=== PATIENT | male | born 1965 | race Two or more races ===

== ENCOUNTER 2016-05-01 14:20 | Emergency (ER) | payer SELFPAY ==
[~2016-05-01] VITALS: Ht 177.8 cm; Wt 64.8 kg
[2016-05-01 21:41] VITALS: BP 104/70
== END 2016-05-01 21:45 | disposition home or self-care (01) ==
LOC: EME 14:20
DX: F20.9 Schizophrenia, unspecified (principal); Z76.0 Encounter for issue of repeat prescription
CPT/HCPCS: 90839; 99281; 99284

== ENCOUNTER 2016-07-04 15:39 | Emergency (ER) | payer OTHER ==
[~2016-07-04] VITALS: Ht 177.8 cm; Wt 64.1 kg
[2016-07-04 16:44] LABS: HEMATOCRIT 35.1 % (38.0-50.0); MCH 33.6 PG (29.0-34.0); MCHC 33.3 G/DL (30.0-36.0); MCV 100.9 FL (86-99); MEAN PLAT.VOLUME 11.1 uM^3 (9.0-12.4); PLATELET COUNT 222 K/uL (156-360); RBC DIS.WIDTH-CV 13.7 % (11.8-14.6); RBC DIS.WIDTH-SD 50.9 % (39-53); RED BLOOD COUNT 3.48 M/uL (4.00-5.50)
[2016-07-04 16:57] LABS: CHLORIDE 109 mEq/L (99-109); POTASSIUM 3.7 mEq/L (3.7-5.4); SODIUM 140 mEq/L (136-147)
[2016-07-04 16:59] LABS: GLUCOSE 97 mg/dL (70-99)
[2016-07-04 17:00] LABS: ANION GAP 9 MEQ/L (2-14)
[2016-07-04 17:03] LABS: GFR ESTIMATE (CALCULATED) > 59 mL/min/; UREA NITROGEN (BUN) 10 mg/dL (9-23)
[2016-07-04] MEDS ORDERED: CLINDAMYCIN HC300 MG PO (19:03)
[2016-07-04] MEDS ORDERED: TERBINAFINE HC250 MG PO (19:08)
[2016-07-04 19:25] VITALS: BP 112/64
== END 2016-07-04 19:33 | disposition home or self-care (01) ==
LOC: EME → EDBD 15:39 → EME 15:39
PROVIDERS: Emergency Medicine
DX: L03.116 Cellulitis of left lower limb (principal); B35.1 Tinea unguium; E78.5 Hyperlipidemia, unspecified; F17.200 Nicotine dependence, unspecified, uncomplicated
CPT/HCPCS: 73610; 73630; 80048; 83605; 85027; 99281; 99285

== ENCOUNTER 2016-10-06 12:21 | Emergency (ER) | payer OTHER ==
[~2016-10-06] VITALS: Ht 177.8 cm; Wt 62.0 kg
[~2016-10-06 12:21] MED LIST: CLINDAMYCIN HC300 MG PO; TERBINAFINE HC250 MG PO
[2016-10-06 13:30] LABS: EOSINOPHIL (%) 0.2 % (0-5); IMMATURE GRANULOCYTE (%) 0.5 % (0.0-0.7); IMMATURE GRANULOCYTE COUNT 0.1 K/uL; INSTRUMENT ABS NEUTROPHIL CT 8.7 K/uL; LYMPHOCYTE COUNT 1.3 K/uL (1.0-2.8); MCH 33.4 PG (29.0-34.0); MCHC 35.1 G/DL (30.0-36.0); MCV 95.1 FL (86-99); MEAN PLAT.VOLUME 10.4 uM^3 (9.0-12.4); MONOCYTE (%) 8.8 % (3-12); NEUTROPHIL (%) 78.3 % (45-76); NEUTROPHIL COUNT 8.7 K/uL (1.8-6.4); PLATELET COUNT 270 K/uL (156-360); RBC DIS.WIDTH-CV 12.2 % (11.8-14.6); RBC DIS.WIDTH-SD 42.3 % (39-53); RED BLOOD COUNT 3.89 M/uL (4.00-5.50); WHITE BLOOD COUNT 11.1 K/uL (4.1-10.2)
[2016-10-06 13:47] LABS: CHLORIDE 103 mEq/L (99-109); POTASSIUM 3.9 mEq/L (3.7-5.4); SODIUM 135 mEq/L (136-147)
[2016-10-06 13:49] LABS: GLUCOSE 91 mg/dL (70-99)
[2016-10-06 13:50] LABS: ANION GAP 10 MEQ/L (2-14)
[2016-10-06 13:51] LABS: TOTAL BILIRUBIN 0.6 mg/dL (0.0-1.0)
[2016-10-06 13:53] LABS: ALKALINE PHOSPHATASE 63 IU/L (3-129); GFR ESTIMATE (CALCULATED) > 59 mL/min/
[2016-10-06 13:54] LABS: UREA NITROGEN (BUN) 8 mg/dL (9-23)
[2016-10-06 13:56] LABS: CREATINE KINASE 710 IU/L (1-294); TOTAL CK 710 IU/L (1-294)
[2016-10-06 13:57] LABS: TROP-I INTERPRETATION NEGATIVE; TROPONIN-I < 0.01 ng/mL (0.0-0.30)
[2016-10-06 18:54] VITALS: BP 110/64
== END 2016-10-06 13:53 | disposition home or self-care (01) ==
LOC: EME 12:21
PROVIDERS: Emergency Medicine
DX: E86.0 Dehydration (principal); R79.89 Other specified abnormal findings of blood chemistry; E78.5 Hyperlipidemia, unspecified; F20.9 Schizophrenia, unspecified; F17.200 Nicotine dependence, unspecified, uncomplicated
CPT/HCPCS: 70450; 71010; 80053; 82550; 82553; 84484; 85025; 93005; 99281; 99285; J7030

== ENCOUNTER 2017-10-10 15:37 | Emergency (ER) | payer OTHER ==
[~2017-10-10] VITALS: Ht 177.8 cm; Wt 58.5 kg
[2017-10-10 16:27] LABS: HEMATOCRIT 38.1 % (38.0-50.0); HEMOGLOBIN 13.1 G/DL (12.5-16.6); MCHC 34.4 G/DL (30.0-36.0); PLATELET COUNT 231 K/uL (156-360); RBC DIS.WIDTH-SD 51.3 % (39-53); RED BLOOD COUNT 3.85 M/uL (4.00-5.50); WHITE BLOOD COUNT 7.4 K/uL (4.1-10.2)
[2017-10-10 16:35] LABS: CHLORIDE 108 mEq/L (99-109); SODIUM 140 mEq/L (136-147)
[2017-10-10 16:37] LABS: GLUCOSE 95 mg/dL (70-99)
[2017-10-10 16:41] LABS: CREATININE 0.7 mg/dL (0.6-1.3); GFR ESTIMATE (CALCULATED) > 59 mL/min/ (58.99-99999)
[2017-10-10 16:42] LABS: UREA NITROGEN (BUN) 6 mg/dL (9-23)
[2017-10-10] MEDS ORDERED: KEFLEX500 MG PO (18:27)
[2017-10-10 19:10] VITALS: BP 112/72
== END 2017-10-10 19:11 | disposition home or self-care (01) ==
LOC: EME 15:37
PROVIDERS: Nurse Practitioner Family
DX: L03.116 Cellulitis of left lower limb (principal); L03.115 Cellulitis of right lower limb; Z88.0 Allergy status to penicillin; F17.200 Nicotine dependence, unspecified, uncomplicated
CPT/HCPCS: 80048; 85027; 90832; 99281; 99284